=== PATIENT | female | born 1940 | race Caucasian/White ===

== ENCOUNTER 2017-11-25 10:03 | Emergency (ER) | payer OTHER | END 2017-11-25 13:18 | disposition home or self-care (01) | LOC: D.ER 10:03 | DX: S82.242A Displaced spiral fracture of shaft of left tibia, initial encounter for closed fracture (principal); W10.9XXA Fall (on) (from) unspecified stairs and steps, initial encounter; Y93.89 Activity, other specified; Y92.019 Unspecified place in single-family (private) house as the place of occurrence of the external cause; I10 Essential (primary) hypertension ==

== ENCOUNTER 2019-10-18 08:00 | Outpatient (CLI) | payer MEDICARE | END 2019-10-18 23:59 | disposition home or self-care (01) | LOC: D.MAMMO 08:00 | PROVIDERS: ATTEND Nurse Practitioner | DX: Z12.31 Encounter for screening mammogram for malignant neoplasm of breast (principal) ==